=== PATIENT | female | born 1950 | race Caucasian/White ===

== ENCOUNTER 2016-09-25 13:17 | Outpatient (CLI) | payer BC, OTHER | END 2016-09-25 19:55 | disposition home or self-care (01) | LOC: SMA 13:17 | PROVIDERS: ATTEND Internal Medicine | DX: N64.89 Other specified disorders of breast (principal); R92.1 Mammographic calcification found on diagnostic imaging of breast | CPT/HCPCS: 76641; G0204 ==

== ENCOUNTER 2016-11-06 08:08 | Outpatient (CLI) | payer BC, OTHER | END 2016-11-06 19:38 | disposition home or self-care (01) | LOC: SUS 08:08 | PROVIDERS: ATTEND Surgery | DX: R10.9 Unspecified abdominal pain (principal) | CPT/HCPCS: 76705 ==

== ENCOUNTER 2017-03-07 08:13 | Outpatient (CLI) | payer BC, OTHER | END 2017-03-07 19:01 | disposition home or self-care (01) | LOC: SUS 08:13 | PROVIDERS: ATTEND Internal Medicine | DX: N63.20 Unspecified lump in the left breast, unspecified quadrant (principal); N63.10 Unspecified lump in the right breast, unspecified quadrant | CPT/HCPCS: 76641 ==

== ENCOUNTER 2018-11-26 09:49 | Outpatient (CLI) | payer OTHER, MEDICARE | END 2018-11-26 21:18 | disposition home or self-care (01) | LOC: SMA 09:49 | DX: Z12.31 Encounter for screening mammogram for malignant neoplasm of breast (principal) | CPT/HCPCS: 77067 ==

== ENCOUNTER 2019-06-03 08:45 | Outpatient (CLI) | payer OTHER, MEDICARE | END 2019-06-03 20:21 | disposition home or self-care (01) | LOC: SUS 08:45 | PROVIDERS: ATTEND Obstetrics & Gynecology Gynecology | DX: N64.89 Other specified disorders of breast (principal); R92.2 Inconclusive mammogram | CPT/HCPCS: 76641 ==

== ENCOUNTER 2019-06-23 07:36 | Emergency (ER) | payer OTHER, MEDICARE ==
[~2019-06-23] VITALS: Ht 160 cm; Wt 63.5 kg
[2019-06-23 07:40] VITALS: BP_SYST 159
[2019-06-23 09:06] VITALS: BP_SYST 142
== END 2019-06-23 09:06 | disposition home or self-care (01) ==
LOC: SED 07:36
DX: J06.9 Acute upper respiratory infection, unspecified (principal); B97.89 Other viral agents as the cause of diseases classified elsewhere
CPT/HCPCS: 36415; 71045; 86710; 99284

== ENCOUNTER 2019-12-30 08:59 | Outpatient (CLI) | payer OTHER, MEDICARE | END 2019-12-30 19:49 | disposition home or self-care (01) | LOC: SMA 08:59 | PROVIDERS: ATTEND Obstetrics & Gynecology Gynecology | DX: N64.89 Other specified disorders of breast (principal); N63.20 Unspecified lump in the left breast, unspecified quadrant; N63.21 Unspecified lump in the left breast, upper outer quadrant; R92.2 Inconclusive mammogram | CPT/HCPCS: 76641; 77066 ==

== ENCOUNTER 2021-01-18 09:25 | Outpatient (CLI) | payer OTHER, MEDICARE | END 2021-01-18 14:50 | disposition home or self-care (01) | LOC: SMA 09:25 | PROVIDERS: ATTEND Obstetrics & Gynecology Gynecology | DX: N63.14 Unspecified lump in the right breast, lower inner quadrant (principal); N63.23 Unspecified lump in the left breast, lower outer quadrant; N60.01 Solitary cyst of right breast; N60.02 Solitary cyst of left breast; R92.1 Mammographic calcification found on diagnostic imaging of breast; R92.2 Inconclusive mammogram | CPT/HCPCS: 76641; 77066 ==

== ENCOUNTER 2022-01-16 11:28 | Outpatient (CLI) | payer OTHER, MEDICARE | END 2022-01-16 19:48 | disposition home or self-care (01) | LOC: SUS 11:28 | PROVIDERS: ATTEND Family Medicine | DX: N63.14 Unspecified lump in the right breast, lower inner quadrant (principal); N63.23 Unspecified lump in the left breast, lower outer quadrant; R92.1 Mammographic calcification found on diagnostic imaging of breast; R92.2 Inconclusive mammogram; R10.9 Unspecified abdominal pain | CPT/HCPCS: 76641; 76700-TC; 77066 ==

== ENCOUNTER 2023-01-22 10:38 | Outpatient (CLI) | payer OTHER, MEDICARE | END 2023-01-22 19:11 | disposition home or self-care (01) | LOC: SMA 10:38 | PROVIDERS: ATTEND Obstetrics & Gynecology Gynecology | DX: Z12.31 Encounter for screening mammogram for malignant neoplasm of breast (principal); R92.30 Dense breasts, unspecified; R92.1 Mammographic calcification found on diagnostic imaging of breast; N60.01 Solitary cyst of right breast; N60.02 Solitary cyst of left breast | CPT/HCPCS: 76641; 77067 ==

== ENCOUNTER 2023-10-17 09:53 | Outpatient (CLI) | payer OTHER, MEDICARE | END 2023-10-17 19:23 | disposition home or self-care (01) | LOC: SCA 09:53 | PROVIDERS: ATTEND Family Medicine | DX: I07.1 Rheumatic tricuspid insufficiency (principal); R06.02 Shortness of breath | CPT/HCPCS: 93306 ==